=== PATIENT | male | born 1960 | race Caucasian/White ===

== ENCOUNTER → 2017-10-25 | Outpatient (REF) ==
[~2017-10-25] MED LIST: COUM1TAB17 PO; FOLI1TAB4 PO; LIDO4SO TOP; LYRI75CA PO; MULT1TAB8 PO; PERC5TAB12 PO; TRAM50TA2 PO; TYLE325T5 PO; VITA100T2 PO
== END ==
LOC: M LAB 09:34
DX: Z02.89 Encounter for other administrative examinations